=== PATIENT | male | born 1950 | race Caucasian/White ===

== ENCOUNTER 2023-07-16 03:12 | Outpatient (CLI) | payer MEDICARE, SELFPAY ==
--- NOTE | 2023-07-16 20:43 | PDOC.EEG ---
Neurology EEG EEG: [facility] Department of Neurology EEG REPORT Date of Recordin07/16/23 Interpreting Physician: Dr. Oralia Sharp PCP/Referring Provider: Dr. Corbin Rogel Reason for study: Mr. Smith is a 72 year old with recent episodes of generalized shaking without loss of awareness. Current Medications: Acetominiphin 500 mg for pain Apixoban 5 mg bid Atorvostatin 20 mg qd Citirizine 10 mg qd Ipratromium nasal spray Lisinopril 40 mg qd Mentho-Salicylate topical cream for neck pain Metropolol 25 mg qd Sumatryptan 6 mg subcutaneous for migraines Trazadone 50 mg qhs for insomnia Ubrogepant 100 mg 3x/week for migraines METHODS: A 21 channel digitized electroencephalogram was performed in the [facility] Clinical Neurophysiology Laboratory. The 10/20 international system of electrode placement was used and bipolar and referential electrode montages were recorded. In addition to EEG the patient was monitored for EKG and lateral/vertical eye movements. Activation procedures of photic stimulation and hyperventilation were performed if applicable. Video was used during activation procedures and during events where applicable. The duration of the recording was 30 minutes. DESCRIPTION OF EEG: The patient was noted to be awake, drowsy, and asleep during the recording. During maximal wakefulness a 10-Hz posterior background rhythm was present which was well-modulated, symmetrical, reactive to eye opening, and of moderate voltage. With eye opening the background activity changed to a low voltage mixture of alpha, beta, and occasional theta range frequencies. Faster frequencies were present in the bilateral anterior head regions. There was a normal anterior-posterior voltage gradient. During drowsiness, there was attenuation of the posterior dominant background rhythm and vertex waves. Stage II sleep was present with symmetrical sleep spindles, K-complexes, and vertex waves. Activating Procedures: Photic stimulation was performed which produced no posterior driving response. Hyperventilation was performed with moderate effort and produced mild physiological slowing of the background. EKG: EKG revealed an irregularly irregular rhythm. INTERPRETATION: This EEG is normal during the awake and sleep states as well as during photic stimulation and hyperventilation. The EKG revealed an irregular rhythm. PRIOR EEG: none CLINICAL CORRELATION: No focal regions of cerebral dysfunction or epileptiform activity was present. Epilepsy remains a clinical diagnosis and a normal EEG does not rule out epilepsy. See EKG read above. Clinical correlation is advised. Oralia Sharp MD Date of service: 07/16/23 Coding CPT Codes EEG AWAKE AND ASLEEP - 39317 ([id number])
== END 2023-07-16 03:13 | disposition home or self-care (01) ==
LOC: RT 03:12
PROVIDERS: PCP Family Medicine; Visit Provider Internal Medicine Geriatric Medicine
DX: R56.9 Unspecified convulsions (principal); I49.9 Cardiac arrhythmia, unspecified
CPT/HCPCS: 95819